=== PATIENT | female | born 1995 | race Caucasian/White ===

== ENCOUNTER 2020-10-25 17:13 | Outpatient (CLI) | payer OTHER ==
[~2020-10-25 17:13] MED LIST: AUGMENTIN 500-500 MG PO; COLACE 100MG C100 MG PO; LORTAB 7.5-3251 EACH PO
[2020-10-25 19:01] LABS: HEMOGLOBIN 12.6 gm/dl (12.3-15.3); RED BLOOD COUNT 4.09 M/UL (4.00-5.10); WHITE BLOOD COUNT 14.7 K/UL (4.5-11.0)
[2020-10-25 21:02] LABS: BUN/CREATININE RATIO 13 (0-10)
[2020-11-02] MEDS ORDERED: PRENATAL VITAM1 EAC3 PO (07:03)
[2020-11-02] MEDS ORDERED: PEPCID20 MG PO (07:03)
[2020-11-03] MEDS ORDERED: COLACE 100MG C100 MG PO (09:58)
[2020-11-03] MEDS ORDERED: LORTAB 5-325 M1 EACH PO (09:58)
== END 2020-10-25 21:22 | disposition home or self-care (01) ==
LOC: GENOP 17:13 → OB 17:13 → UNDOADMOB 17:13 → OB 18:14 → GENOP 21:22
PROVIDERS: Obstetrics & Gynecology
DX: O13.3 Gestational [pregnancy-induced] hypertension without significant proteinuria, third trimester (principal)
CPT/HCPCS: 36415; 80053; 82570; 84156; 84550; 85025; G0378; G0379; G0463

== ENCOUNTER → 2022-07-10 | Outpatient (CLI) | payer OTHER ==
[~2022-07-10] MED LIST changes: +DOCUSATE SODIU250 MG PO; +HYDROCODONE-AC1 EACH PO; +IBUPROFEN600 MG PO; +LORTAB 5-325 M1 EACH PO; +PEPCID20 MG PO; +PHENERGAN 25 MG25 M1 PO; +PRENATAL VITAM1 EAC3 PO; +ZOFRAN ODT 4 MG4 MG PO
[2022-07-10 12:33] LABS: HEMOGLOBIN 11.6 gm/dl (12.3-15.3); RED BLOOD COUNT 3.83 M/UL (4.00-5.10); WHITE BLOOD COUNT 10.4 K/UL (4.5-11.0)
== END ==
LOC: GENOP 11:25
PROVIDERS: Obstetrics & Gynecology
DX: Z01.812 Encounter for preprocedural laboratory examination (principal); O34.219 Maternal care for unspecified type scar from previous cesarean delivery
CPT/HCPCS: 36415; 81001; 85025

== ENCOUNTER 2022-07-11 07:21 | Inpatient (IN) | payer OTHER ==
[~2022-07-11] VITALS: Ht 154.9 cm; Wt 96.2 kg
[~2022-07-11 07:21] MED LIST changes: -DOCUSATE SODIU250 MG PO; -HYDROCODONE-AC1 EACH PO; -IBUPROFEN600 MG PO; -PHENERGAN 25 MG25 M1 PO; -ZOFRAN ODT 4 MG4 MG PO
[2022-07-11] MEDS ORDERED: PHENERGAN 25 MG25 M1 PO (08:11)
[2022-07-11] MEDS ORDERED: ZOFRAN ODT 4 MG4 MG PO (08:12)
[2022-07-11] MEDS ORDERED: HYDROCODONE-AC1 EACH PO (10:41)
[2022-07-11] MEDS ORDERED: DOCUSATE SODIU250 MG PO (10:41)
[2022-07-11] MEDS ORDERED: IBUPROFEN600 MG PO (10:41)
[2022-07-12 05:54] LABS: HEMOGLOBIN 9.5 gm/dl (12.3-15.3)
== END 2022-07-12 19:13 | disposition home or self-care (01) | DRG 788 ==
LOC: OB 07:21
PROVIDERS: ADMIT Obstetrics & Gynecology
PROC: 3E0234Z Introduction of Serum, Toxoid and Vaccine into Muscle, Percutaneous Approach (ICD-10-PCS; 2022-07-11)
PROC: 10D00Z1 Extraction of Products of Conception, Low, Open Approach (ICD-10-PCS; principal; 2022-07-11 08:45)
DX: O36.63X0 Maternal care for excessive fetal growth, third trimester, not applicable or unspecified (principal); O34.211 Maternal care for low transverse scar from previous cesarean delivery; Z37.0 Single live birth; Z3A.39 39 weeks gestation of pregnancy; Z82.49 Family history of ischemic heart disease and other diseases of the circulatory system; Z83.3 Family history of diabetes mellitus; Z83.6 Family history of other diseases of the respiratory system; Z90.49 Acquired absence of other specified parts of digestive tract; Z23 Encounter for immunization
CPT/HCPCS: 36415; 82800; 85014; 85018; 90715; C9113; J0690; J1885; J2274; J2370; J2405; J2590; J3010